=== PATIENT | male | born 1935 | race Caucasian/White ===

== ENCOUNTER 2018-12-24 05:26 | Emergency (ER) | payer MEDICARE, OTHER ==
[~2018-12-24] VITALS: Ht 167.6 cm; Wt 104.5 kg
[2018-12-24 05:30] VITALS: Ht 167.6 cm; Wt 104.5 kg
[2018-12-24] MEDS ORDERED: JANUVIA25 MG (05:31)
[2018-12-24] MEDS ORDERED: GLUCOPHAGE500 MG (05:31)
[2018-12-24] MEDS ORDERED: BAYER CHEWABLE81 MG PO (05:31)
[2018-12-24] MEDS ORDERED: [UNRECOGNIZED DRUG - REMARK] (05:32)
[2018-12-24 06:44] LABS: CALC OSMOLALITY 278 mosm/kg (275-300); CALCIUM 8.9 mg/dL (8.5-10.1); CARBON DIOXIDE 28.6 mmol/L (21.0-32.0); CHLORIDE - SERUM 103 mmol/L (98-107); GLUCOSE 160 mg/dL (74-106); POTASSIUM - SERUM 4.9 mmol/L (3.5-5.1); SODIUM 138 mmol/L (136-145); UREA NITROGEN 12 mg/dL (7-18); eGFR NON AFRICAN AMERICAN 76 mL/min (90-120)
[2018-12-24 06:46] LABS: BASOPHILS 0.3 % (0-2); EOSINOPHILS 2.1 % (0-7); HEMATOCRIT 35.8 % (42.0-54.0); HEMOGLOBIN 10.4 g/dL (13.5-17.5); IMMATURE GRANULOCYTES 0.3 % (0-5); LYMPHOCYTES 11.7 % (15-50); MCH 24.1 pg (26.0-34.0); MCHC 29.1 g/dL (31.0-37.0); MCV 82.9 fL (80.0-100.0); MEAN PLATELET VOLUME 9.6 fL (7.4-10.4); MONOCYTES 7.5 % (2-11); NEUTROPHILS 78.1 % (40-80); PLATELET COUNT 209 10x3/uL (130-400); RBC 4.32 10x6/uL (4.20-6.10); RDW 15.7 % (11.5-14.5); WBC 7.5 10x3/uL (4.8-10.8)
[2018-12-24 06:59] LABS: ALBUMIN 3.4 g/dL (3.4-5.0); ALKALINE PHOSPHATASE 84 U/L (46-116); ALT (SGPT) 24 U/L (10-68); BILIRUBIN - TOTAL 0.45 mg/dL (0.2-1.3); CREATINE KINASE 146 UL (21-232); MAGNESIUM - SERUM 1.4 mg/dL (1.8-2.4); PROTEIN - SERUM 7.4 g/dL (6.4-8.2); TROPONIN-I 0.044 ng/mL (0.000-0.060)
[2018-12-24 07:19] LABS: INR 0.94 (0.85-1.17); PROTIME 12.1 SECONDS (11.6-15.0)
[2018-12-24 07:20] LABS: APTT 29.2 SECONDS (22.8-39.4)
[2018-12-24 07:34] LABS: APPEARANCE CLEAR (CLEAR); BILIRUBIN NEGATIVE (NEGATIVE); COLOR YELLOW (YELLOW); GLUCOSE 250 mg/dL (NEGATIVE); KETONE NEGATIVE (NEGATIVE); NITRITE NEGATIVE (NEGATIVE); PROTEIN NEGATIVE (NEGATIVE); UROBILINOGEN NORMAL (NORMAL)
[2018-12-24 08:14] LABS: THYROID STIMULATING HORMONE 3.24 uIU/mL (0.36-3.74)
[2018-12-24 08:58] VITALS: BP 147/67
== END 2018-12-24 08:59 | disposition home or self-care (01) ==
LOC: D.ER 05:26
PROVIDERS: Emergency Medicine; Family Medicine
DX: R51 Headache (principal); R68.83 Chills (without fever)

== ENCOUNTER 2020-05-18 17:46 | Inpatient (IN) | payer MEDICARE, OTHER ==
[~2020-05-18] VITALS: Ht 167.6 cm; Wt 114.3 kg
[~2020-05-18 17:46] MED LIST: BAYER ASPIRIN325 MG PO; GLUCOPHAGE1000 MG PO; JANUVIA100 MG PO; [UNRECOGNIZED DRUG - REMARK]
--- NOTE | 2020-05-18 20:00 | NUR ---
AWAKE AND ALERT. RESTING IN BED WITH RESPIRATIONS UNLABORED. ADMITTED FOR PHYSICAL THERAPY AND SERVICES OF DR OLSON. FIDE WALKER. NOTED ABDOMINAL DISTENTION, NO ACUTE DISTRESS NOTED. CALL LIGHT IN REACH.
[2020-05-18 20:03] VITALS: BP 122/74
[2020-05-19 00:58] VITALS: BP 122/74; BMI 40.7
[2020-05-19 04:40] LABS: BILIRUBIN NEGATIVE (NEGATIVE); KETONE NEGATIVE (NEGATIVE); NITRITE NEGATIVE (NEGATIVE); UROBILINOGEN NORMAL mg/dL (< 2)
[2020-05-19 04:41] LABS: BACTERIA FEW HPF (NONE SEEN); SQUAMOUS EPITHELIAL 0-5 HPF (0-4)
--- NOTE | 2020-05-19 05:30 | NUR ---
QUIET HOURS. UP ONE TIME TO CHAIR X 1 HOUR PER HIS REQUEST. NOW RESTING IN BED WITH NO DISTRESS NOTED. FIDE WALKER. CALL LIGHT IN REACH.
[2020-05-19 05:32] LABS: BASOPHILS 0.3 % (0-2); EOSINOPHILS 1.7 % (0-7); HEMATOCRIT 31.4 % (42.0-54.0); HEMOGLOBIN 10.2 g/dL (13.5-17.5); IMMATURE GRANULOCYTES 0.2 % (0-5); LYMPHOCYTE ABS# 0.78 10x3/uL (1.32-3.57); LYMPHOCYTES 12.3 % (15-50); MCH 27.1 pg (26.0-34.0); MCHC 32.5 g/dL (31.0-37.0); MCV 83.5 fL (80.0-100.0); MEAN PLATELET VOLUME 10.2 fL (7.4-10.4); MONOCYTES 12.9 % (2-11); NEUTROPHILS 72.6 % (40-80); RBC 3.76 10x6/uL (4.20-6.10); WBC 6.3 10x3/uL (4.8-10.8)
[2020-05-19 05:33] LABS: PLATELET COUNT 150 10x3/uL (130-400)
[2020-05-19 05:42] LABS: ANION GAP 9.1 mmol/L (8-16); CALCIUM 9.2 mg/dL (8.5-10.1); CARBON DIOXIDE 32.4 mmol/L (21.0-32.0); POTASSIUM - SERUM 4.5 mmol/L (3.5-5.1)
--- NOTE | 2020-05-19 08:00 | NUR ---
SHIFT ASSMT COMPLETED.
[2020-05-19 08:18] VITALS: BP 121/55
[2020-05-19 09:36] VITALS: BMI 40.6
[2020-05-19 19:00] VITALS: BP 122/57
--- NOTE | 2020-05-19 19:22 | NUR ---
AWAKE AND ALERT. RESTING IN BED WITH RESPIRATIONS UNLABORED. ELIZALDE PATENT. ABDOMEN DISTENDED AND SCROTUM SWOLLEN. RECENTLY MEDICATED FOR PAIN. SEE MAR. CALL LIGHT IN REACH.
--- NOTE | 2020-05-20 08:00 | NUR ---
SHIFT ASSMT COMPLETED.
[2020-05-20 08:48] VITALS: BP 136/60
--- NOTE | 2020-05-20 16:00 | NUR ---
VISITING WITH SON.
[2020-05-20 19:00] VITALS: BP 143/74
--- NOTE | 2020-05-20 19:29 | NUR ---
AWAKE AND ALERT. USED BATHROOM AND HAD A SMALL BM. ABDOMEN REMAINS DISTENDED BUT SCROTUM AND LEG SWELLING HAS GONE DOWN. ELIZALDE PATENT. O2/2L ON PER NASAL CANNULA. CALL LIGHT IN REACH.
--- NOTE | 2020-05-21 01:33 | NUR ---
RESTING IN BED WITH RESPIRATIONS UNLABORED. NO DISTRESS NOTED.
--- NOTE | 2020-05-21 05:08 | NUR ---
QUIET HOURS. NO ACUTE CHANGES IN CONDITION THIS SHIFT. RESTING IN BED WITH NO DISTRESS NOTED.
[2020-05-21 07:27] LABS: BASOPHILS 0.1 % (0-2); EOSINOPHILS 2.2 % (0-7); HEMATOCRIT 30.8 % (42.0-54.0); HEMOGLOBIN 9.9 g/dL (13.5-17.5); IMMATURE GRANULOCYTES 0.1 % (0-5); LYMPHOCYTE ABS# 0.95 10x3/uL (1.32-3.57); LYMPHOCYTES 14.1 % (15-50); MCH 26.7 pg (26.0-34.0); MCHC 32.1 g/dL (31.0-37.0); MEAN PLATELET VOLUME 10.1 fL (7.4-10.4); MONOCYTES 11.1 % (2-11); NEUTROPHIL ABS# 4.89 10x3/uL (1.78-5.38); NEUTROPHILS 72.4 % (40-80); RBC 3.71 10x6/uL (4.20-6.10); RDW 16.3 % (11.5-14.5); WBC 6.8 10x3/uL (4.8-10.8)
--- NOTE | 2020-05-21 07:34 | NUR ---
ALERT AND ORIENTED. ASSESSMENT COMPLETE. DENIES NEEDS. BED LOW. CALL OVERTON AND PERSONAL ITEMS IN REACH. WILL CONTINUE TO MONITOR.
[2020-05-21 07:35] LABS: PLATELET COUNT 187 10x3/uL (130-400)
[2020-05-21 07:36] LABS: ANION GAP 13.7 mmol/L (8-16); CALCIUM 9.3 mg/dL (8.5-10.1); CARBON DIOXIDE 28.5 mmol/L (21.0-32.0); CREATININE - SERUM 3.5 mg/dL (0.6-1.3); POTASSIUM - SERUM 5.2 mmol/L (3.5-5.1)
[2020-05-21 07:47] VITALS: BP 106/58
--- NOTE | 2020-05-21 17:53 | NUR ---
RESTING IN BED. FAMILY AT BEDSIDE. DENIES NEEDS. WILL CONTINUE TO MONITOR.
--- NOTE | 2020-05-21 19:00 | NUR ---
BEDSIDE REPORT COMPLETE. RECEIVED PT SITTING UP IN W/C VISITING WITH FAMILY. ALERT AND ORIENTED X4. PT REQUESTS HS MEDS BE GIVEN AT 2200. ABDOMINAL DISTENTION NOTED. BLE +2 EDEMA. F/C PATENT FREE FROM KINKS. DENIES ANY PAIN. NO DISTRESS NOTED. CALL LIGHT AND WATER WITHIN REACH. FALL PRECAUTIONS IN PLACE. NO IV OR OXYGEN NOTED. CPOC
[2020-05-21 19:09] VITALS: BP 127/55
--- NOTE | 2020-05-22 00:05 | NUR ---
PT CALLED WANTING TO SIT UP IN W/C. ASSISTED PT WITH TRANSFER MIN ASSIST. PT DENIES ANY OTHER NEEDS. CALL LIGHT WITHIN REACH. FALL PRECAUTIONS IN PLACE.
[2020-05-22] MEDS ORDERED: OMEPRAZOLE20 M1 PO (01:48)
[2020-05-22] MEDS ORDERED: ALDACTONE100 MG PO (01:49)
[2020-05-22] MEDS ORDERED: FLOMAX0.4 MG PO (01:50)
[2020-05-22] MEDS ORDERED: TORSEMIDE20 MG PO (01:59)
[2020-05-22] MEDS ORDERED: ZOCOR40 MG PO (02:01)
[2020-05-22] MEDS ORDERED: NYSTATIN100000 UN4 PO (02:02)
[2020-05-22] MEDS ORDERED: NORVASC5 MG PO (02:03)
[2020-05-22] MEDS ORDERED: VOLTAREN100 GM TOPICAL (02:03)
[2020-05-22] MEDS ORDERED: TRELEGY ELLIPT1 EACH INH (02:04)
[2020-05-22] MEDS ORDERED: SYNTHROID50 MCG PO (02:14)
[2020-05-22] MEDS ORDERED: IBUPROFEN400 MG PO (02:14)
[2020-05-22] MEDS ORDERED: MELATONIN10 M1 PO (02:15)
[2020-05-22] MEDS ORDERED: ALBUTEROL SULF8.5 GM INH (02:16)
--- NOTE | 2020-05-22 02:45 | NUR ---
PT LYING IN BED SUPINE EYES CLOSED RESTING. CONTINUES ON 2L VIA NC. NO DISTRESS NOTED. CALL LIGHT WITHIN REACH.
--- NOTE | 2020-05-22 05:13 | NUR ---
ASSISTED PT FROM BED TO W/C WITH MIN ASSIST. 900ML DARK YELLOW URINE EMPTIED FROM F/C. DENIES ANY NEEDS OR PAIN. NO ACUTE CHANGES IN CONDITION NOTED THIS SHIFT. CALL LIGHT WITHIN REACH. FALL PRECAUTIONS IN PLACE. CPOC
[2020-05-22 06:45] LABS: ANION GAP 17.2 mmol/L (8-16); CALCIUM 9.1 mg/dL (8.5-10.1); CARBON DIOXIDE 25.3 mmol/L (21.0-32.0); CREATININE - SERUM 3.8 mg/dL (0.6-1.3); POTASSIUM - SERUM 5.5 mmol/L (3.5-5.1)
[2020-05-22 06:52] LABS: BASOPHILS 0.3 % (0-2); EOSINOPHILS 1.9 % (0-7); HEMATOCRIT 29.9 % (42.0-54.0); HEMOGLOBIN 9.9 g/dL (13.5-17.5); IMMATURE GRANULOCYTES 0.2 % (0-5); LYMPHOCYTE ABS# 0.44 10x3/uL (1.32-3.57); LYMPHOCYTES 7.5 % (15-50); MCH 27.4 pg (26.0-34.0); MCHC 33.1 g/dL (31.0-37.0); MCV 82.8 fL (80.0-100.0); MEAN PLATELET VOLUME 9.8 fL (7.4-10.4); MONOCYTES 12.6 % (2-11); NEUTROPHIL ABS# 4.57 10x3/uL (1.78-5.38); NEUTROPHILS 77.5 % (40-80); PLATELET COUNT 172 10x3/uL (130-400); RBC 3.61 10x6/uL (4.20-6.10); RDW 16.5 % (11.5-14.5); WBC 5.9 10x3/uL (4.8-10.8)
[2020-05-22 07:55] VITALS: BP 134/59
--- NOTE | 2020-05-22 18:55 | NUR ---
BEDSIDE REPORT COMPLETE. RECEIVED PT LYING IN BED, ALERT AND ORIENTED X4. ELIZALDE CATH PATENT FREE FROM KINKS. CONCENTRATED URINE NOTED IN COLLECTION BAG. +1 EDEMA TO BLE. DENIES ANY NEEDS OR PAIN. NO DISTRESS NOTED. 2L O2 PRN. O2 SAT 95% ON ROOM AIR. CALL LIGHT AND WATER WTIHIN REACH. FALL PRECAUTIONS IN PLACE. CPOC
[2020-05-22 20:00] VITALS: BP 121/56
--- NOTE | 2020-05-22 23:42 | NUR ---
PT LYING IN BED SUPINE EYES CLOSED RESTING. HOB ELEVATED. RR EVEN AND UNLABORED. CONTINUES ON O2/2L VIA NC. CALL LIGHT WITHIN REACH
--- NOTE | 2020-05-23 02:40 | NUR ---
PT CALLED WANTING TO GET UP AND SIT IN W/C. SUPERVISED TRANSFER FROM BED TO W/C. DENIES ANY OTHER NEEDS OR PAIN. NO DISTRESS NOTED. CALL LIGHT WITHIN REACH. FALL PRECAUTIONS IN PLACE. CPOC
--- NOTE | 2020-05-23 05:40 | NUR ---
DR. SPENCE CALLED IN REGARDS TO CONSULT. TELEPHONE ORDERS FOR ALBUMIN 50GM BID AND LASIX 80MG IV BID. DC DEMADEX 80MG BID, LASIX 20MG DAILY, ALDACTONE 100MG BID. ORDERS READ BACK AND VERIFIED BY DR. SPENCE. DR. SPENCE REPORTED PT NEEDS CT GUIDED BIOPSY WITH POSSIBLE PARACENTESIS D/T ABDOMINAL DISTENTION AND REQUESTED A NOTE BE LEFT FOR EARLE BOWENS. REVIEWED LABS WITH DR. SPENCE OVER THE PHONE. WILL ORDER FOLLOWING MEDS PER T.O.
--- NOTE | 2020-05-23 06:40 | NUR ---
NO UPDRAFT GIVEN PT UP WALKING THE HALLS WITH THERAPY
[2020-05-23 06:59] LABS: BASOPHILS 0.1 % (0-2); EOSINOPHILS 2.9 % (0-7); HEMATOCRIT 29.6 % (42.0-54.0); HEMOGLOBIN 9.7 g/dL (13.5-17.5); IMMATURE GRANULOCYTES 0.1 % (0-5); LYMPHOCYTE ABS# 0.88 10x3/uL (1.32-3.57); LYMPHOCYTES 12.6 % (15-50); MCH 26.7 pg (26.0-34.0); MCHC 32.8 g/dL (31.0-37.0); MCV 81.5 fL (80.0-100.0); MEAN PLATELET VOLUME 9.9 fL (7.4-10.4); MONOCYTES 11.9 % (2-11); NEUTROPHIL ABS# 5.05 10x3/uL (1.78-5.38); NEUTROPHILS 72.4 % (40-80); PLATELET COUNT 195 10x3/uL (130-400); RBC 3.63 10x6/uL (4.20-6.10); RDW 16.2 % (11.5-14.5)
[2020-05-23 07:19] LABS: ALBUMIN 3.3 g/dL (3.4-5.0); ANION GAP 18.1 mmol/L (8-16); BILIRUBIN - TOTAL 1.44 mg/dL (0.2-1.3); CALCIUM 9.1 mg/dL (8.5-10.1); CARBON DIOXIDE 26.8 mmol/L (21.0-32.0); CREATININE - SERUM 3.9 mg/dL (0.6-1.3); MAGNESIUM - SERUM 1.7 mg/dL (1.8-2.4); POTASSIUM - SERUM 5.9 mmol/L (3.5-5.1); PROTEIN - SERUM 6.5 g/dL (6.4-8.2)
[2020-05-23 07:41] VITALS: BP 140/65
[2020-05-23 13:06] VITALS: Ht 167.6 cm; Wt 114.3 kg
[2020-05-23] MEDS ORDERED: ULTRAM50 MG PO (14:57)
[2020-05-23 15:12] LABS: CALCIUM 9.5 mg/dL (8.5-10.1); CARBON DIOXIDE 27.8 mmol/L (21.0-32.0); CREATININE - SERUM 3.9 mg/dL (0.6-1.3); POTASSIUM - SERUM 5.8 mmol/L (3.5-5.1)
[2020-05-23] MEDS ORDERED: LASIX INJ40 MG/4 ML IV (15:24)
[2020-05-23] MEDS ORDERED: ALBUMINAR-25100 ML IV (15:26)
[2020-05-23] MEDS ORDERED: PROTONIX40 MG PO (15:29)
--- NOTE | 2020-05-23 15:37 | NUR ---
CARE TEAM MEETING: DUE TO CHANGE IN PATIENT MEDICAL CONDITION, PATIENT DISCHARGE FROM [facility] AND ADMITTED TO ACUTE FLOOR.
[2020-05-23] MEDS ORDERED: ATROVENT 0.02%2.5 ML UPD (15:40)
[2020-05-23] MEDS ORDERED: PERFOROMIS20 MCG/21 INH (15:42)
[2020-05-23] MEDS ORDERED: PULMICORT0.5 MG/21 INH (15:53)
[2020-05-23] MEDS ORDERED: MYLANTA / MAALO30 ML PO (15:55)
--- NOTE | 2020-05-24 00:32 | RHP ---
PATIENT: KOSTAS HERCULES MEDICAL RECORD: [id number] ACCOUNT: [id number] LOCATION:[facility] Aravind1119 : 37 ADMISSION DATE: 05/18/20 REHABILITATION HISTORY AND PHYSICAL EXAMINATION POST ADMISSION PHYSICIAN EXAMINATION ADMITTING DIAGNOSIS: Debility. HISTORY OF PRESENT ILLNESS: The patient admitted due to acute hip rehabilitation secondary to debility to a newly-diagnosed cirrhosis and newly-diagnosed liver cancer. He is an 85-year-old gentleman who lives alone at home, was independent with his care. At times, he did require some assistance from a single point cane. He was diagnosed with COVID back in October last year. Apparently, he has gone to the Emergency Room. He arrived in the Emergency Department with complaints of abdominal distention and shortness of breath. He states that he had decreased urine output, had gained 15 to 30 pounds, had abnormal labs with elevated potassium, BUN and creatinine and LFTs. CT of his abdomen showed nodular hepatic contour suggesting of cirrhotic morphology, an indeterminate lesion was also noted. Follow up with scanning showed a large volume ascites and nonobstructing bilateral nephrolithiasis. The patient has a small left pleural effusions also noted. He was admitted and renal oncology saw him throughout his stay. General medicine also saw him throughout his stay. He is currently getting palliative care because states that he did not feel like that he wanted to pursue treatment. He has had a large volume paracentesis done. We have been watching his blood sugars and blood pressure also. His current problems include proximal muscle weakness, electrolyte abnormalities, eosinophilia, Klinefelter syndrome. He has got diabetes. He has got ascites, acute renal failure. The patient is going to need continued monitoring of his labs, his bowel function, his bladder training, pain control, medication adjustment, dietary teaching. He is needing PT and OT for strengthening, endurance, safe use of assistive devices to hopefully get him back home again. COMORBIDITIES: Include ksyry-ie-zsmhssi renal failure, arrhythmias, ataxia, cancer, chronic kidney disease, difficulty walking, diabetes, edema, electrolyte abnormalities, hypertension, osteoporosis, TIA in the past. PAST MEDICAL HISTORY: Significant for diabetes, hypertension, hyperlipidemia, oxygen dependency, COVID, morbid obesity, obstructive sleep apnea, Harrison's palsy, eosinophilia, hypogonadism, hypothyroidism. PAST SURGICAL HISTORY: Includes cataract surgery, he has had bilateral knee replacements, multiple colonoscopies, polypectomies, removal of benign skin lesions, carpal tunnel. ALLERGIES: SHELLFISH AND SULFA. CURRENT MEDICATIONS: Include furosemide 20 mg daily, aspirin 325 daily, amlodipine 5 mg daily, Protonix 40 mg daily, Januvia 100 mg daily with breakfast, metformin 1000 mg b.i.d., formoterol 20 mcg daily, he is on Atrovent updrafts, budesonide 0.5 mg b.i.d., Synthroid 50 mcg daily, diclofenac topically to use as needed, Demadex 80 mg b.i.d., Flomax 0.4 mg at bedtime, spironolactone 100 mg b.i.d., nystatin suspension 5 mL before every meal and at bedtime, melatonin 10 mg at bedtime, Zocor 20 mg at bedtime, he is on tramadol 50 mg every 6 hours, Advil 400 mg every 6 hours and Ventolin updrafts. HISTORY AND PHYSICAL [id number] KOSTAS HERCULES HABITS: No current alcohol or tobacco use. FAMILY HISTORY: Noncontributory. SOCIAL HISTORY: The patient hopes to return back home and get back to his prior level of functioning. REVIEW OF SYSTEMS: GENERAL: He does complain of weakness and fatigue. HEENT: Denies cold, cough or congestion. CARDIOVASCULAR: Denies any chest pain. PHYSICAL EXAMINATION: VITAL SIGNS: Stable, afebrile. GENERAL: A morbidly obese gentleman in no acute distress upon exam. HEENT: Normocephalic and atraumatic. Mucosa moist. NECK: Supple with no lymphadenopathy. LUNGS: Clear in upper bernstein. Decreased breath sounds in the bases. CARDIOVASCULAR: Regular rate and rhythm. No murmurs, rubs or gallops. ABDOMEN: Soft, protuberant. Does have a positive fluid wave and ascites. EXTREMITIES: Does have peripheral edema. NEUROLOGIC: He has got some diffuse weakness. LABORATORY DATA: White count 6.3, H&H 10 and 31 and platelet count was noted to be 150. His sodium is 134, potassium 4.5, BUN and creatinine of 56 and 3.0 and blood sugar is noted to be 136. Admit UA did show trace leukocyte esterase and 2+ blood. ASSESSMENT: This is an 85-year-old gentleman admitted to the rehab with a working diagnosis of debility secondary to new-onset cirrhosis and renal insufficiency. The patient has potential to make improvement. We instituted the following multidisciplinary therapies include, not limited to physical, occupational, respiratory, speech, nutritional services, prosthetics and orthotics. Given his complex medical condition and risks for more complications, rehabilitation services cannot be provided at a low level of care such as jail facility. PLAN: 1. Admit to [facility] for inpatient therapy to include the following disciplines; A. Physical therapy to improve gait, all transfer skills and bed mobility to a modified independent level. B. Occupational therapy to improve activities of daily living. C. Case management to help with discharge planning and placement options. D. Nutrition to assist with nutritional needs. E. Rehabilitation nursing to assist in monitoring the patient's underlying medical condition and to assist with any type of bowel or bladder management. 2. The patient's current medication and Medicare will be continued. 3. Placed on standard fall precautions. 4. The patient's estimated length of stay is approximately 7-10 days. 5. Discuss this patient during care team staff meeting this week and my nurse practitioner will be seeing him again on Thursday a.m. TRANSINT:[id number] Voice Confirmation ID: [id number] DOCUMENT ID: [id number] HISTORY AND PHYSICAL [id number] KOSTAS HERCULES 05/22/2020 Edited for leticia OSBORN. ANURAG notes whether there has been none or any medical/functional change since admission: - No change since preadmission screen. ANURAG attests patient continues to be appropriate for IRF: - Continues to be appropriate. KOSTAS OLSON MD at 0032 CC: [id number] DICTATION DATE: 05/19/20 1113 CERTIFIED PHARMACIST ASSISTANT: 05/19/20 1226 DIS IN 05/23/20 [facility] [address] [id number]
== END 2020-05-23 17:04 | disposition short-term general hospital (02) | DRG 948 ==
LOC: D.REHAB 17:46
PROVIDERS: Internal Medicine Nephrology; ADMIT Emergency Medicine; ATTEND Emergency Medicine
DX: R53.81 Other malaise (principal); C22.8 Malignant neoplasm of liver, primary, unspecified as to type; N17.9 Acute kidney failure, unspecified; K74.60 Unspecified cirrhosis of liver; Z86.16 Personal history of COVID-19; M62.81 Muscle weakness (generalized); E87.8 Other disorders of electrolyte and fluid balance, not elsewhere classified; E11.9 Type 2 diabetes mellitus without complications; Q98.4 Klinefelter syndrome, unspecified; E78.5 Hyperlipidemia, unspecified; E66.01 Morbid (severe) obesity due to excess calories; G47.33 Obstructive sleep apnea (adult) (pediatric); G51.0 Bell's palsy; E03.9 Hypothyroidism, unspecified; D72.10 Eosinophilia, unspecified; I12.9 Hypertensive chronic kidney disease with stage 1 through stage 4 chronic kidney disease, or unspecified chronic kidney disease; N18.9 Chronic kidney disease, unspecified; R26.2 Difficulty in walking, not elsewhere classified

== ENCOUNTER 2020-05-23 17:05 | Inpatient (IN) | payer MEDICARE, OTHER ==
[~2020-05-23] VITALS: Ht 167.6 cm; Wt 102.5 kg
--- NOTE | 2020-05-23 17:00 | NUR ---
RECEIVED PATIENT FROM REHAB AT THIS TIME. PATIENT AMBULATES WELL FROM CHAIR TO CHAIR. PATIENT PATIENT IS ALERT AND ORIENTED AT THIS TIME. PLAN OF CARE REVIEWED AND ASSESSMENT HAS BEEN COMPLETED. PATIENT HAS 2 PLUS PITTING EDEMA TO HIS BILATERAL LOWER LEGS. HIS LEGS ARE DISCOLORED. HE HAS ELIZALDE CATH THAT WAS PLACED BY THE UROLOGIST SO IT IS NOT TO BE REMOVED. PATIENT HAS MULTIPLE PERSONAL BELONINGS. STATED HIS LAST BM WAS THIS AM, BUT HE ISNT' VERY REGULAR. NURSE DOES NOTE DYPNEA ON EXERTION. VITALS WNL ON ADMISSION. CALLLIGHT IN REACH
[~2020-05-23 17:05] MED LIST changes: +ALBUMINAR-25100 ML IV; +ALBUTEROL SULF8.5 GM INH; +ALDACTONE100 MG PO; +ATROVENT 0.02%2.5 ML UPD; +FLOMAX0.4 MG PO; +IBUPROFEN400 MG PO; +LASIX INJ40 MG/4 ML IV; +MELATONIN10 M1 PO; +MYLANTA / MAALO30 ML PO; +NORVASC5 MG PO; +NYSTATIN100000 UN4 PO; +OMEPRAZOLE20 M1 PO; +PERFOROMIS20 MCG/21 INH; +PROTONIX40 MG PO; +PULMICORT0.5 MG/21 INH; +SYNTHROID50 MCG PO; +TORSEMIDE20 MG PO; +TRELEGY ELLIPT1 EACH INH; +ULTRAM50 MG PO; +VOLTAREN100 GM TOPICAL; +ZOCOR40 MG PO
[2020-05-23 17:38] VITALS: BP 123/59; BMI 36.5
--- NOTE | 2020-05-23 19:30 | NUR ---
PT IN BED, AAO X 3, RESP EVEN AND UNLABORED, NO DISTRESS NOTED, CL IN REACH, SR UP X 2.
[2020-05-23 20:00] VITALS: BP 108/59
[2020-05-23 23:58] VITALS: BP 119/49
[2020-05-24] VITALS (17 sets, daily range): BP systolic 105–131; BP diastolic 49–61; Ht 167.6 cm; Wt 102.5 kg
--- NOTE | 2020-05-24 02:27 | NUR ---
I have reviewed this patient and I concur with the Shift Assessment completed by the Licensed Practical Nurse today this shift.
--- NOTE | 2020-05-24 02:27 | NUR ---
I have reviewed this patient and I concur with the Shift Assessment completed by the Licensed Practical Nurse today this shift.
[2020-05-24 07:12] LABS: BASOPHILS 0.4 % (0-2); EOSINOPHILS 2.5 % (0-7); HEMATOCRIT 27.4 % (42.0-54.0); HEMOGLOBIN 9.1 g/dL (13.5-17.5); IMMATURE GRANULOCYTES 0.4 % (0-5); LYMPHOCYTE ABS# 0.62 10x3/uL (1.32-3.57); LYMPHOCYTES 11.2 % (15-50); MCH 27.1 pg (26.0-34.0); MCHC 33.2 g/dL (31.0-37.0); MCV 81.5 fL (80.0-100.0); MEAN PLATELET VOLUME 9.9 fL (7.4-10.4); MONOCYTES 9.5 % (2-11); NEUTROPHIL ABS# 4.23 10x3/uL (1.78-5.38); PLATELET COUNT 189 10x3/uL (130-400); RBC 3.36 10x6/uL (4.20-6.10); RDW 16.4 % (11.5-14.5); WBC 5.6 10x3/uL (4.8-10.8)
--- NOTE | 2020-05-24 07:20 | NUR ---
Sitting up in bed, awake/alert/oriented, t/r self ad hali, fc patent and draining clear yellow urine to cdb in ample amt, cath care provided with daily bath and prn, cont of bowel with use of bsc per self ad hali, denies pain/other discomfort at this time, discussed procedure before/after, states understanding, call light/phone within reach, npo for paracentesis, no s/s of acute distress observed.
[2020-05-24 07:31] LABS: ALBUMIN 3.8 g/dL (3.4-5.0); ANION GAP 15.3 mmol/L (8-16); BILIRUBIN - TOTAL 1.48 mg/dL (0.2-1.3); CALCIUM 9.3 mg/dL (8.5-10.1); CARBON DIOXIDE 25.7 mmol/L (21.0-32.0); PROTEIN - SERUM 6.9 g/dL (6.4-8.2); URIC ACID 14.2 mg/dL (2.6-7.2)
[2020-05-24 08:31] LABS: APTT 31.9 SECONDS (22.8-39.4); INR 1.21 (0.85-1.17); PROTIME 14.2 SECONDS (11.6-15.0)
--- NOTE | 2020-05-24 08:33 | NUR ---
Off unit to IR via stretcher in stable condition accompanied by hospital staff, no s/s of acute distress observed.
--- NOTE | 2020-05-24 09:25 | NUR ---
Returned to room, dressing on RLQ clean/dry/intact, took off only 3000mL, call light/phone/water within reach, ordered breakfast, no s/s of acute distress observed.
--- NOTE | 2020-05-24 19:30 | NUR ---
PT IN BED, AAO X 3, RESP EVEN AND UNLABORED, NO DISTRESS NOTED, CL IN REACH, SR UP X 2.
--- NOTE | 2020-05-25 02:28 | NUR ---
I have reviewed this patient and I concur with the Shift Assessment completed by the Licensed Practical Nurse today this shift.
[2020-05-25 04:14] VITALS: BP 111/66
[2020-05-25 05:54] LABS: BASOPHILS 0.4 % (0-2); EOSINOPHILS 3.1 % (0-7); HEMATOCRIT 27.3 % (42.0-54.0); IMMATURE GRANULOCYTES 0.2 % (0-5); LYMPHOCYTE ABS# 0.86 10x3/uL (1.32-3.57); LYMPHOCYTES 16.9 % (15-50); MCH 26.9 pg (26.0-34.0); MCV 81.7 fL (80.0-100.0); MEAN PLATELET VOLUME 10.1 fL (7.4-10.4); MONOCYTES 11.6 % (2-11); NEUTROPHIL ABS# 3.45 10x3/uL (1.78-5.38); NEUTROPHILS 67.8 % (40-80); PLATELET COUNT 197 10x3/uL (130-400); RBC 3.34 10x6/uL (4.20-6.10); RDW 16.3 % (11.5-14.5); WBC 5.1 10x3/uL (4.8-10.8)
[2020-05-25 06:10] LABS: ALBUMIN 4.3 g/dL (3.4-5.0); ANION GAP 14.6 mmol/L (8-16); BILIRUBIN - TOTAL 1.61 mg/dL (0.2-1.3); CALCIUM 9.2 mg/dL (8.5-10.1); CARBON DIOXIDE 26.2 mmol/L (21.0-32.0); MAGNESIUM - SERUM 1.9 mg/dL (1.8-2.4); POTASSIUM - SERUM 4.8 mmol/L (3.5-5.1); PROTEIN - SERUM 7.1 g/dL (6.4-8.2)
--- NOTE | 2020-05-25 07:10 | NUR ---
LYING IN BED, AWAKE/ALERT/ORIENTED, T/R SELF AD ROBI, FC PATENT AND DRAINING CLEAR YELLOW URINE TO CDB IN AMPLE AMT, CATH CARE PROVIDED WITH DAILY BATH AND PRN, CONT OF BOWEL WITH ASSIST TO BSC/BEDPAN PRN, DENIES PAIN/OTHER DISCOMFORT AT THIS TIME, CALL LIGHT/PHONE/WATER WITHIN REACH, NO S/S OF ACUTE DISTRESS OBSERVED.
[2020-05-25 08:39] VITALS: BP 129/66
[2020-05-25 13:12] LABS: SPE - A/G RATIO 1.4 (0.7-1.7); SPE - ALBUMIN 3.8 g/dL (2.9-4.4); SPE - ALPHA-1 GLOBULIN 0.3 g/dL (0.0-0.4); SPE - ALPHA-2 GLOBULIN 0.7 g/dL (0.4-1.0); SPE - BETA GLOBULIN 0.7 g/dL (0.7-1.3); SPE - GAMMA GLOBULIN 1.2 g/dL (0.4-1.8); SPE - M-SPIKE 0.2 g/dL (Not Observed); SPE - TOTAL PROTEIN 6.6 g/dL (6.0-8.5)
[2020-05-25 20:29] VITALS: BP 106/56
--- NOTE | 2020-05-25 23:42 | NUR ---
REPORT RECEIVED, WILL CONT POC. PT UP IN BED, WATCHING TV. NO S/S OF DISTRESS OBSERVED. RR EVEN AND UNLABORED ON RA. BED LOCKED AND LOWERED, CL IN REACH. ASSESSMENT COMPLETED AT THIS TIME. WILL CONT TO MONITOR.
[2020-05-26 00:46] VITALS: BP 114/57
[2020-05-26 05:35] LABS: BASOPHILS 0.6 % (0-2); EOSINOPHILS 3.4 % (0-7); HEMATOCRIT 28.7 % (42.0-54.0); HEMOGLOBIN 9.4 g/dL (13.5-17.5); IMMATURE GRANULOCYTES 0.2 % (0-5); LYMPHOCYTES 13.2 % (15-50); MCH 26.9 pg (26.0-34.0); MCHC 32.8 g/dL (31.0-37.0); MCV 82.2 fL (80.0-100.0); MEAN PLATELET VOLUME 10.1 fL (7.4-10.4); MONOCYTES 12.2 % (2-11); NEUTROPHIL ABS# 3.74 10x3/uL (1.78-5.38); NEUTROPHILS 70.4 % (40-80); PLATELET COUNT 196 10x3/uL (130-400); RBC 3.49 10x6/uL (4.20-6.10); RDW 16.4 % (11.5-14.5); WBC 5.3 10x3/uL (4.8-10.8)
[2020-05-26 05:53] VITALS: BP 100/58
[2020-05-26 06:08] LABS: ALBUMIN 4.4 g/dL (3.4-5.0); ANION GAP 15.3 mmol/L (8-16); BILIRUBIN - TOTAL 1.56 mg/dL (0.2-1.3); CALCIUM 9.2 mg/dL (8.5-10.1); CARBON DIOXIDE 26.2 mmol/L (21.0-32.0); MAGNESIUM - SERUM 1.8 mg/dL (1.8-2.4); POTASSIUM - SERUM 4.5 mmol/L (3.5-5.1); PROTEIN - SERUM 7.2 g/dL (6.4-8.2)
--- NOTE | 2020-05-26 07:00 | NUR ---
LYING IN BED, AWAKE/ALERT/ORIENTED, T/R SELF AD ROBI, FC PATENT AND DRAINING CLEAR YELLOW URINE TO CDB IN AMPLE AMT, CATH CARE PROVIDED WITH DAILY BATH AND PRN, CONT OF BOWEL WITH ASSIST TO BEDPAN/BSC AD ROBI, DENIES PAIN/OTHER DISCOMFORT AT THIS TIME, CALL LIGHT/PHONE/WATER WITHIN REACH, NO S/S OF ACUTE DISTRESS OBSERVED.
--- NOTE | 2020-05-26 07:32 | NUR ---
PTS IV TO L AC LEAKY BUT PATENT. STARTED NEW IV TO L HAND 22 G.
[2020-05-26 08:20] VITALS: BP 136/52
[2020-05-26] MEDS ORDERED: XIFAXAN550 MG PO ×2 (12:19→12:39)
[2020-05-26] MEDS ORDERED: VELTASSA8.4 GM PO (12:25)
[2020-05-26 12:32] VITALS: BP 106/60
--- NOTE | 2020-05-26 16:49 | MORECARE ---
CASE MANAGEMENT DISCHARGE SUMMARY PATIENT: KOSTAS HERCULES UNIT: [id number] ADM DATE: 05/23/20 AGE: 85 : 36 SEX: M ROOM/BED: D.2136 AUTHOR: MOISES,DOC PHYSICIAN: REFERRING PHYSICIAN: GILBERT KUMAR MD DATE OF SERVICE: 05/26/20 Case Management Discharge Planning Summary CT Patient Name: KOSTAS HERCULES Attending MD : TERESA KUMAR, Medical Record: [id number] Encounter : [id number] Facility : [address] [place] [address] Admission Date : 117:05 Center Discharge Date : [address] [place] [address] Date of : DC Plan ID : [id number] Age/Sex/Martia : 85/ M/M Printed on : 05/26/20 16:48 CT DCP Review Details Anticipated D/C: 05/26/2020 Expected LOS : 3 Case Status : INITIATED - Initial Reviewe: [id number] - Mic Cole Initial Review: 05/23/2020 Planned Disposi: 62 - Discharged/Trans to Rehab Facility Including Distinct Units of a Hospital Final Discharge: - Final Reviewer : : Final Review : DCP Focus Questions & Answers DCP Evaluation Patient gives permission to discuss discharge SRINIVAS HERNANDEZ, plans with: (name, relationship and number) Patient's ability to cope with chronic illness d. No chronic illness Patient's current cognitive status: *Oriented to person, place, situation, time and present Patient and/or caregiver agree upon recommended Yes discharge plan? Physical Status: Independent with ADL's Functional screen assessment: Basic needs can adequately be met by self Functional screen assessment: No issues identified Does the patient have the ability to pay for or Yes attain post discharge needs / services? Living Arrangements: Home with others Is there a likelihood that the patient will No require additional services to return to the preadmission environment? Equipment needed for post hospitalization: None Baseline cognitive status: *Oriented to person, place, situation, time and present Living arrangements comments: lives with Son, Rohit Hercules Patient with capacity for self-care or can be Yes cared for in same environment as prior to hospitalization? Physical environment modification needed / No anticipated for discharge: Medication Management: Patient states can afford medications Medication Management: Patient states can read and understand medication labels Pharmacy name(s): [facility] Does Patient have transportation to get home and Yes to follow-up medical appointments when discharged from the hospital? Would patient like to participate in any Care Not applicable Coordination programs (if applicable): Does the patient have electricity at home? Yes Does the patient have running water in their Yes house? Equipment in use: Cane - Single Leg Equipment in use: Walker - Rolling Mental health screen: No mental health history DCP Re-evaluation Would patient like to participate in any Care Not applicable Coordination programs (if applicable): [facility] KOSTAS HERCULES MR#: [id number] /Age/Sex/Ptimar12-Bec-51 /85/M /M Attending Physician Name: JOSÉ [id number] Patient Account:[id number] [facility] Page -1 of 1 All edits/amendments must be made on the electronic document DICTATION DATE: 05/26/201647 MODELER: MICHELLE 05/26/201647 RPT#: [id number] DC DATE: STATUS: ADM IN [facility] [address] [place] [address] END OF REPORT
--- NOTE | 2020-05-26 17:06 | MORECARE ---
CASE MANAGEMENT DISCHARGE SUMMARY PATIENT: KOSTAS HERCULES UNIT: [id number] ADM DATE: 05/23/20 AGE: 85 : 36 SEX: M ROOM/BED: D.2136 AUTHOR: MOISES,DOC PHYSICIAN: REFERRING PHYSICIAN: GILBERT KUMAR MD DATE OF SERVICE: 05/26/20 Case Management Discharge Planning Summary CT Patient Name: KOSTAS HERCULES Attending MD : TERESA KUMAR, Medical Record: [id number] Encounter : [id number] Facility : [address] [place] [address] Admission Date : 117:05 Center Discharge Date : [address] [place] [address] Date of : DC Plan ID : [id number] Age/Sex/Martia : 85/ M/M Printed on : 05/26/20 17:05 CT DCP Review Details Anticipated D/C: 05/26/2020 Expected LOS : 3 Case Status : INITIATED - Initial Reviewe: [id number] - Mic Cole Initial Review: 05/23/2020 Planned Disposi: 62 - Discharged/Trans to Rehab Facility Including Distinct Units of a Hospital Final Discharge: - Final Reviewer : : Final Review : Comments CT Entered Date Type Reviewer 05/26/20 16:59 CT Discharge Planning Mic Cole [place] [address] May 2020 plan and to evaluate needs. Patient lives independently at home with his son, Rohit Hercules ([phone]). Patient stated that he is able to obtain his medications without problems. Patient stated that his primary physician is Dr. Basilio Cole. Nephrology physician at bedside. Patient is ok to return to [facility] inpatient rehab if Octreotide can be continued. Patient is in agreement with plan to return to [facility] inpatient rehab. Rehab notified and medication information given to [facility]. Patient discussed Home Health as an alternative to [facility] but changed his mind. SAMANTA for [facility] inpatient rehab signed and placed on chart. Patient voiced no other needs at this time and is satisfied with DC plan. DC IMM delivered, explained, signed by the patient, and placed in chart. Signed form also left with the patient. CM will continue to follow and will assist as needed with dc plans/needs. DCP Focus Questions & Answers DCP Evaluation Patient gives permission to discuss discharge SRINIVAS HERNANDEZ, plans with: (name, relationship and number) Patient's ability to cope with chronic illness d. No chronic illness Patient's current cognitive status: *Oriented to person, place, situation, time and present Patient and/or caregiver agree upon recommended Yes discharge plan? Physical Status: Independent with ADL's Functional screen assessment: Basic needs can adequately be met by self Functional screen assessment: No issues identified Does the patient have the ability to pay for or Yes attain post discharge needs / services? Living Arrangements: Home with others Is there a likelihood that the patient will No require additional services to return to the preadmission environment? Equipment needed for post hospitalization: None Baseline cognitive status: *Oriented to person, place, situation, time and present Living arrangements comments: lives with Son, Rohit Hercules Patient with capacity for self-care or can be Yes cared for in same environment as prior to hospitalization? Physical environment modification needed / No anticipated for discharge: Medication Management: Patient states can afford medications Medication Management: Patient states can read and understand medication labels Pharmacy name(s): [facility] Does Patient have transportation to get home and Yes to follow-up medical appointments when discharged from the hospital? Would patient like to participate in any Care Not applicable Coordination programs (if applicable): Does the patient have electricity at home? Yes Does the patient have running water in their Yes house? Equipment in use: Cane - Single Leg Equipment in use: Walker - Rolling Mental health screen: No mental health history DCP Re-evaluation Would patient like to participate in any Care Not applicable Coordination programs (if applicable): [facility] KOSTAS HERCULES MR#: [id number] /Age/Sex/Cvkwpk23-Fah-93 /85/M /M Attending Physician Name: JOSÉ [id number] Patient Account:[id number] [facility] Page -1 of 1 All edits/amendments must be made on the electronic document DICTATION DATE: 05/26/201704 [employer]ISE APPLICATIONS MANAGER: MICHELLE 05/26/201704 RPT#: [id number] DC DATE: STATUS: ADM IN [facility] [address] [place] [address] END OF REPORT
--- NOTE | 2020-05-26 19:30 | NUR ---
AAOX4. NO S/S OF DISTRESS. ASSESSMENT COMPLETE. WILL CONT PLAN OF CARE. CLIR, BED IN LOWEST POSITION.
[2020-05-26 20:30] VITALS: BP 130/61
--- NOTE | 2020-05-26 21:30 | NUR ---
MEDS PASSED. PATIENT PLEASANT. SN PROVIDED FRESH WATER. DENIES ANY OTHER NEEDS OR CONCERNS. CLIR. BED IN LOWEST POSITION. WILL CONT TO MONITOER.
[2020-05-27 00:30] VITALS: BP 115/58
--- NOTE | 2020-05-27 01:00 | NUR ---
SLEEPING SUPINE, RR EVEN AND NONLABORED. CLKIR,. BED IN LOWEST POSITION. WILL CONT TO MONITOR.
[2020-05-27 04:30] VITALS: BP 103/56
--- NOTE | 2020-05-27 07:10 | NUR ---
LYING IN BED, AWAKE/ALERT/ORIENTED, T/R SELF AD ROBI, CATH CARE PROVIDED WITH DAIY BATH AND PRN, PERICARE PROVIDED NEEDED WELL, DENIES PAIN/OTHER DISCOMFORT AT THIS TIME, CALL LIGHT/PHONE/WATER WITHIN REACH, NO S/S OF ACUTE DISTRESS OBSERVED.
[2020-05-27 07:27] LABS: BASOPHILS 0.7 % (0-2); EOSINOPHILS 3.4 % (0-7); HEMATOCRIT 30.8 % (42.0-54.0); IMMATURE GRANULOCYTES 0.4 % (0-5); LYMPHOCYTE ABS# 1.03 10x3/uL (1.32-3.57); LYMPHOCYTES 18.4 % (15-50); MCH 26.8 pg (26.0-34.0); MCHC 32.5 g/dL (31.0-37.0); MCV 82.6 fL (80.0-100.0); MEAN PLATELET VOLUME 10.2 fL (7.4-10.4); MONOCYTES 10.7 % (2-11); NEUTROPHIL ABS# 3.71 10x3/uL (1.78-5.38); NEUTROPHILS 66.4 % (40-80); PLATELET COUNT 204 10x3/uL (130-400); RBC 3.73 10x6/uL (4.20-6.10); RDW 16.2 % (11.5-14.5); WBC 5.6 10x3/uL (4.8-10.8)
[2020-05-27 07:41] LABS: ALBUMIN 4.1 g/dL (3.4-5.0); ANION GAP 19.1 mmol/L (8-16); BILIRUBIN - TOTAL 1.52 mg/dL (0.2-1.3); CALCIUM 9.2 mg/dL (8.5-10.1); CARBON DIOXIDE 23.5 mmol/L (21.0-32.0); CREATININE - SERUM 3.8 mg/dL (0.6-1.3); MAGNESIUM - SERUM 1.8 mg/dL (1.8-2.4); POTASSIUM - SERUM 4.6 mmol/L (3.5-5.1); PROTEIN - SERUM 6.8 g/dL (6.4-8.2)
[2020-05-27 08:26] VITALS: BP 136/56
[2020-05-27 13:21] VITALS: BP 103/62
[2020-05-27 16:16] VITALS: BP 135/68
--- NOTE | 2020-05-27 18:26 | NUR ---
PROVIDED WRITTEN/VERBAL DISCHARGE INSTRUCTIONS/EDUCATION TO WHICH PT VERBALIZED UNDERSTANDING, DISCONTINUED IV ACCESS/CARDIAC TELEMETRY MONITORING, PERSONAL POSSESSIONS PACKED AND READY TO GO, PT AWAITING TRANSPORT TO INPATIENT REHAB.
--- NOTE | 2020-05-27 19:13 | MORECARE ---
CASE MANAGEMENT DISCHARGE SUMMARY PATIENT: KOSTAS HERCULES UNIT: [id number] ADM DATE: 05/23/20 AGE: 85 : 36 SEX: M ROOM/BED: D.2136 AUTHOR: MOISES,DOC PHYSICIAN: REFERRING PHYSICIAN: GILBERT KUMAR MD DATE OF SERVICE: 05/27/20 Case Management Discharge Planning Summary CT Patient Name: KOSTAS HERCULES Attending MD : TERESA KUMAR, Medical Record: [id number] Encounter : [id number] Facility : [address] [place] [address] Admission Date : 117:05 Center Discharge Date : 05/27/[address] [place] [address] Date of : DC Plan ID : [id number] Age/Sex/Martia : 85/ M/M Printed on : 05/27/20 19:12 CT DCP Review Details Anticipated D/C: 05/26/2020 Expected LOS : 3 Case Status : INITIATED - Initial Reviewe: [id number] - Mic Cole Initial Review: 05/23/2020 Planned Disposi: 62 - Discharged/Trans to Rehab Facility Including Distinct Units of a Hospital Final Discharge: - Final Reviewer : : Final Review : Comments CT Entered Date Type Reviewer 05/26/20 16:59 CT Discharge Planning Mic [place] [address] May 2020 plan and to evaluate needs. Patient lives independently at home with his son, Rohit Hercules ([phone]). Patient stated that he is able to obtain his medications without problems. Patient stated that his primary physician is Dr. Basilio Cole. Nephrology physician at bedside. Patient is ok to return to [facility] inpatient rehab if Octreotide can be continued. Patient is in agreement with plan to return to [facility] inpatient rehab. Rehab notified and medication information given to Nehal. Patient discussed Home Health as an alternative to [facility] but changed his mind. SAMANTA for [facility] inpatient rehab signed and placed on chart. Patient voiced no other needs at this time and is satisfied with DC plan. DC IMM delivered, explained, signed by the patient, and placed in chart. Signed form also left with the patient. CM will continue to follow and will assist as needed with dc plans/needs. DCP Focus Questions & Answers DCP Evaluation Patient and/or caregiver agree upon recommended Yes discharge plan? Patient's current cognitive status: *Oriented to person, place, situation, time and present Patient's ability to cope with chronic illness d. No chronic illness Patient gives permission to discuss discharge SRINIVAS HERNANDEZ, plans with: (name, relationship and number) Does the patient have the ability to pay for or Yes attain post discharge needs / services? Functional screen assessment: No issues identified Functional screen assessment: Basic needs can adequately be met by self Physical Status: Independent with ADL's Equipment needed for post hospitalization: None Is there a likelihood that the patient will No require additional services to return to the preadmission environment? Living Arrangements: Home with others Patient with capacity for self-care or can be Yes cared for in same environment as prior to hospitalization? Living arrangements comments: lives with Son, Rohit Hercules Baseline cognitive status: *Oriented to person, place, situation, time and present Physical environment modification needed / No anticipated for discharge: Medication Management: Patient states can read and understand medication labels Medication Management: Patient states can afford medications Pharmacy name(s): [facility] Does Patient have transportation to get home and Yes to follow-up medical appointments when discharged from the hospital? Would patient like to participate in any Care Not applicable Coordination programs (if applicable): Does the patient have electricity at home? Yes Does the patient have running water in their Yes house? Equipment in use: Walker - Rolling Equipment in use: Cane - Single Leg Mental health screen: No mental health history DCP Re-evaluation Would patient like to participate in any Care Not applicable Coordination programs (if applicable): [facility] KOSTAS HERCULES MR#: [id number] /Age/Sex/Irrmwh61-Nic-60 /85/M /M Attending Physician Name: JOSÉ [id number] Patient Account:[id number] [facility] Page -1 of 1 All edits/amendments must be made on the electronic document DICTATION DATE: 05/27/201911 PROFESSOR OF FINE ART: MICHELLE 05/27/201911 RPT#: [id number] DC DATE:05/27/20 STATUS: DIS IN [facility] [address] [place] [address] END OF REPORT
--- NOTE | 2020-05-28 16:46 | MORECARE ---
CASE MANAGEMENT DISCHARGE SUMMARY PATIENT: KOSTAS HERCULES UNIT: [id number] ADM DATE: 05/23/20 AGE: 85 : 36 SEX: M ROOM/BED: D.2136 AUTHOR: MOISES,DOC PHYSICIAN: REFERRING PHYSICIAN: GILBERT KUMAR MD DATE OF SERVICE: 05/28/20 Case Management Discharge Planning Summary CT Patient Name: KOSTAS HERCULES Attending MD : TERESA KUMAR, Medical Record: [id number] Encounter : [id number] Facility : [address] [place] [address] Admission Date : 117:05 Center Discharge Date : 05/27/[address] [place] [address] Date of : DC Plan ID : [id number] Age/Sex/Martia : 85/ M/M Printed on : 05/28/20 16:45 CT DCP Review Details Anticipated D/C: 05/26/2020 Expected LOS : 3 Case Status : INITIATED - Initial Reviewe: [id number] - Mic Cole Initial Review: 05/23/2020 Planned Disposi: 62 - Discharged/Trans to Rehab Facility Including Distinct Units of a Hospital Final Discharge: - Final Reviewer : : Final Review : Comments CT Entered Date Type Reviewer 05/26/20 16:59 CT Discharge Planning Mic Cole [place] [address] May 2020 plan and to evaluate needs. Patient lives independently at home with his son, Rohit Hercules ([phone]). Patient stated that he is able to obtain his medications without problems. Patient stated that his primary physician is Dr. Basilio Cole. Nephrology physician at bedside. Patient is ok to return to [facility] inpatient rehab if Octreotide can be continued. Patient is in agreement with plan to return to [facility] inpatient rehab. Rehab notified and medication information given to Nehal. Patient discussed Home Health as an alternative to [facility] but changed his mind. SAMANTA for [facility] inpatient rehab signed and placed on chart. Patient voiced no other needs at this time and is satisfied with DC plan. DC IMM delivered, explained, signed by the patient, and placed in chart. Signed form also left with the patient. CM will continue to follow and will assist as needed with dc plans/needs. DCP Focus Questions & Answers DCP Evaluation Patient and/or caregiver agree upon recommended Yes discharge plan? Patient's current cognitive status: *Oriented to person, place, situation, time and present Patient's ability to cope with chronic illness d. No chronic illness Patient gives permission to discuss discharge SRINIVAS HERNANDEZ, plans with: (name, relationship and number) Does the patient have the ability to pay for or Yes attain post discharge needs / services? Functional screen assessment: No issues identified Functional screen assessment: Basic needs can adequately be met by self Physical Status: Independent with ADL's Equipment needed for post hospitalization: None Is there a likelihood that the patient will No require additional services to return to the preadmission environment? Living Arrangements: Home with others Patient with capacity for self-care or can be Yes cared for in same environment as prior to hospitalization? Living arrangements comments: lives with Son, Rohit Hercules Baseline cognitive status: *Oriented to person, place, situation, time and present Physical environment modification needed / No anticipated for discharge: Medication Management: Patient states can read and understand medication labels Medication Management: Patient states can afford medications Pharmacy name(s): [facility] Does Patient have transportation to get home and Yes to follow-up medical appointments when discharged from the hospital? Would patient like to participate in any Care Not applicable Coordination programs (if applicable): Does the patient have electricity at home? Yes Does the patient have running water in their Yes house? Equipment in use: Walker - Rolling Equipment in use: Cane - Single Leg Mental health screen: No mental health history DCP Re-evaluation Would patient like to participate in any Care Not applicable Coordination programs (if applicable): [facility] KOSTAS HERCULES MR#: [id number] /Age/Sex/Ewwfwq46-Ygt-22 /85/M /M Attending Physician Name: JOSÉ [id number] Patient Account:[id number] [facility] Page -1 of 1 All edits/amendments must be made on the electronic document DICTATION DATE: 05/28/201644 CORE INSPECTOR: MICHELLE 05/28/201644 RPT#: [id number] DC DATE:05/27/20 STATUS: DIS IN [place] [address] [place] [address] END OF REPORT
== END 2020-05-27 19:00 | DRG 441 ==
LOC: D.M2 17:05
PROVIDERS: Internal Medicine Nephrology; Specialist; ADMIT Family Medicine; ATTEND Family Medicine
PROC: 0W9G3ZZ Drainage of Peritoneal Cavity, Percutaneous Approach (ICD-10-PCS; principal; 2020-05-24 08:59)
DX: K76.7 Hepatorenal syndrome (principal); K72.00 Acute and subacute hepatic failure without coma; N17.9 Acute kidney failure, unspecified; C22.0 Liver cell carcinoma; N39.0 Urinary tract infection, site not specified; E87.1 Hypo-osmolality and hyponatremia; E87.5 Hyperkalemia; E78.5 Hyperlipidemia, unspecified; Z99.81 Dependence on supplemental oxygen; E66.01 Morbid (severe) obesity due to excess calories; G51.0 Bell's palsy; D72.10 Eosinophilia, unspecified; Z66 Do not resuscitate; M81.0 Age-related osteoporosis without current pathological fracture; I12.9 Hypertensive chronic kidney disease with stage 1 through stage 4 chronic kidney disease, or unspecified chronic kidney disease; N18.9 Chronic kidney disease, unspecified; Z68.36 Body mass index [BMI] 36.0-36.9, adult; E11.22 Type 2 diabetes mellitus with diabetic chronic kidney disease; D63.1 Anemia in chronic kidney disease

== ENCOUNTER 2020-05-27 18:45 | Inpatient (IN) | payer MEDICARE, OTHER ==
[~2020-05-27 18:45] MED LIST changes: +VELTASSA8.4 GM PO; +XIFAXAN550 MG PO
[2020-05-28 07:14] LABS: BASOPHILS 0.3 % (0-2); EOSINOPHILS 3.1 % (0-7); HEMATOCRIT 32.8 % (42.0-54.0); HEMOGLOBIN 10.4 g/dL (13.5-17.5); IMMATURE GRANULOCYTES 0.3 % (0-5); LYMPHOCYTE ABS# 1.07 10x3/uL (1.32-3.57); LYMPHOCYTES 17.6 % (15-50); MCH 26.4 pg (26.0-34.0); MCHC 31.7 g/dL (31.0-37.0); MCV 83.2 fL (80.0-100.0); MONOCYTES 11.7 % (2-11); NEUTROPHIL ABS# 4.07 10x3/uL (1.78-5.38); PLATELET COUNT 205 10x3/uL (130-400); RBC 3.94 10x6/uL (4.20-6.10); RDW 16.2 % (11.5-14.5); WBC 6.1 10x3/uL (4.8-10.8)
[2020-05-28 07:21] LABS: ANION GAP 17.7 mmol/L (8-16); CALCIUM 9.4 mg/dL (8.5-10.1); CARBON DIOXIDE 24.4 mmol/L (21.0-32.0); CREATININE - SERUM 3.6 mg/dL (0.6-1.3); POTASSIUM - SERUM 4.1 mmol/L (3.5-5.1)
[2020-05-28 12:33] LABS: BACTERIA FEW HPF (NONE SEEN); BILIRUBIN NEGATIVE (NEGATIVE); KETONE NEGATIVE (NEGATIVE); NITRITE NEGATIVE (NEGATIVE); SQUAMOUS EPITHELIAL RARE HPF (0-4); UROBILINOGEN NORMAL mg/dL (< 2); WHITE CELLS - URINE 0-5 HPF (0-1)
[2020-05-30 05:36] LABS: BASOPHILS 0.7 % (0-2); EOSINOPHILS 3.8 % (0-7); HEMATOCRIT 29.3 % (42.0-54.0); HEMOGLOBIN 9.6 g/dL (13.5-17.5); IMMATURE GRANULOCYTES 0.2 % (0-5); LYMPHOCYTE ABS# 1.06 10x3/uL (1.32-3.57); LYMPHOCYTES 25.1 % (15-50); MCH 26.9 pg (26.0-34.0); MCHC 32.8 g/dL (31.0-37.0); MCV 82.1 fL (80.0-100.0); MEAN PLATELET VOLUME 9.4 fL (7.4-10.4); NEUTROPHIL ABS# 2.37 10x3/uL (1.78-5.38); NEUTROPHILS 56.2 % (40-80); RBC 3.57 10x6/uL (4.20-6.10)
[2020-05-30 05:38] LABS: PLATELET COUNT 157 10x3/uL (130-400); WBC 4.2 10x3/uL (4.8-10.8)
[2020-05-30 06:02] LABS: ANION GAP 18.2 mmol/L (8-16); CALCIUM 9.4 mg/dL (8.5-10.1); CARBON DIOXIDE 22.1 mmol/L (21.0-32.0); CREATININE - SERUM 3.4 mg/dL (0.6-1.3); POTASSIUM - SERUM 4.3 mmol/L (3.5-5.1)
[2020-06-01 06:34] LABS: BASOPHILS 0.5 % (0-2); EOSINOPHILS 2.3 % (0-7); HEMATOCRIT 27.2 % (42.0-54.0); HEMOGLOBIN 8.7 g/dL (13.5-17.5); IMMATURE GRANULOCYTES 0.3 % (0-5); LYMPHOCYTE ABS# 0.96 10x3/uL (1.32-3.57); LYMPHOCYTES 24.9 % (15-50); MCH 26.4 pg (26.0-34.0); MCV 82.7 fL (80.0-100.0); MEAN PLATELET VOLUME 9.6 fL (7.4-10.4); MONOCYTES 12.7 % (2-11); NEUTROPHIL ABS# 2.29 10x3/uL (1.78-5.38); NEUTROPHILS 59.3 % (40-80); PLATELET COUNT 135 10x3/uL (130-400); RBC 3.29 10x6/uL (4.20-6.10); RDW 15.8 % (11.5-14.5); WBC 3.9 10x3/uL (4.8-10.8)
[2020-06-01 06:45] LABS: CALCIUM 9.6 mg/dL (8.5-10.1); CARBON DIOXIDE 22.9 mmol/L (21.0-32.0); CREATININE - SERUM 3.6 mg/dL (0.6-1.3)
[2020-06-01 06:59] LABS: ANION GAP 19.6 mmol/L (8-16); POTASSIUM - SERUM 4.5 mmol/L (3.5-5.1)
[2020-06-04 06:55] LABS: BASOPHILS 0.4 % (0-2); EOSINOPHILS 1.7 % (0-7); HEMATOCRIT 28.3 % (42.0-54.0); HEMOGLOBIN 9.2 g/dL (13.5-17.5); IMMATURE GRANULOCYTES 0.2 % (0-5); LYMPHOCYTE ABS# 0.79 10x3/uL (1.32-3.57); LYMPHOCYTES 16.4 % (15-50); MCH 26.6 pg (26.0-34.0); MCHC 32.5 g/dL (31.0-37.0); MCV 81.8 fL (80.0-100.0); MEAN PLATELET VOLUME 10.4 fL (7.4-10.4); NEUTROPHILS 70.3 % (40-80); PLATELET COUNT 136 10x3/uL (130-400); RBC 3.46 10x6/uL (4.20-6.10); WBC 4.8 10x3/uL (4.8-10.8)
[2020-06-04 07:13] LABS: ANION GAP 20.9 mmol/L (8-16); CALCIUM 10.1 mg/dL (8.5-10.1); CARBON DIOXIDE 21.9 mmol/L (21.0-32.0); POTASSIUM - SERUM 4.8 mmol/L (3.5-5.1)
[2020-06-04 09:35] LABS: % SATURATION 14 % (15-55); IRON 17 ug/dl (35-150); TOTAL IRON BIND CAPACITY 120 ug/dl (260-445); UNSAT IRON BIND CAPACITY 103 ug/dl (150-375)
[2020-06-05 08:43] LABS: ANION GAP 20.6 mmol/L (8-16); CALCIUM 9.9 mg/dL (8.5-10.1); CARBON DIOXIDE 22.1 mmol/L (21.0-32.0); CREATININE - SERUM 4.3 mg/dL (0.6-1.3); POTASSIUM - SERUM 4.7 mmol/L (3.5-5.1)
[2020-06-05] MEDS ORDERED: FLOMAX0.4 MG PO (17:37)
== END 2020-06-05 18:12 | disposition short-term general hospital (02) | DRG 92 ==
LOC: D.REHAB 18:45
PROVIDERS: Internal Medicine; Internal Medicine Hematology & Oncology; Internal Medicine Nephrology; ADMIT Emergency Medicine
DX: G72.89 Other specified myopathies (principal); C22.7 Other specified carcinomas of liver; N17.9 Acute kidney failure, unspecified; N39.0 Urinary tract infection, site not specified; I12.9 Hypertensive chronic kidney disease with stage 1 through stage 4 chronic kidney disease, or unspecified chronic kidney disease; E11.22 Type 2 diabetes mellitus with diabetic chronic kidney disease; N18.9 Chronic kidney disease, unspecified; R53.81 Other malaise; E11.40 Type 2 diabetes mellitus with diabetic neuropathy, unspecified; E78.5 Hyperlipidemia, unspecified; E87.5 Hyperkalemia; R26.2 Difficulty in walking, not elsewhere classified; R53.83 Other fatigue; G47.33 Obstructive sleep apnea (adult) (pediatric); R00.0 Tachycardia, unspecified; R53.1 Weakness; R06.02 Shortness of breath; M81.0 Age-related osteoporosis without current pathological fracture; M19.90 Unspecified osteoarthritis, unspecified site; E66.01 Morbid (severe) obesity due to excess calories; E03.9 Hypothyroidism, unspecified; E87.8 Other disorders of electrolyte and fluid balance, not elsewhere classified; Z68.36 Body mass index [BMI] 36.0-36.9, adult

== ENCOUNTER 2020-06-05 18:11 | Inpatient (IN) | payer MEDICARE, OTHER ==
[~2020-06-05] VITALS: Ht 167.6 cm; Wt 102.5 kg
--- NOTE | ~2020-06-05 | OP ---
PATIENT NAME: KOSTAS HERCULES MEDICAL RECORD: [id number] :37 LOCATION:D.MS [facility] ADMISSION DATE:06/05/20 SURGEON: CHANG UDRAN MD DATE OF OPERATION: 06/07/2020 PREOPERATIVE DIAGNOSES: 1. Malignant ascites. 2. Cirrhosis. 3. Hepatorenal syndrome. 4. Hepatocellular carcinoma. 5. Chronic renal insufficiency. POSTOPERATIVE DIAGNOSES: 1. Malignant ascites. 2. Cirrhosis. 3. Hepatorenal syndrome. 4. Hepatocellular carcinoma. 5. Chronic renal insufficiency. PROCEDURE: 1. Peritoneal PleurX catheter placement. 2. Fluoroscopic interpretation. SURGEON: Chang Duran MD DESCRIPTION OF PROCEDURE: The patient's right lateral abdomen was prepped and draped in sterile fashion. Using ultrasound guidance, I could see that there was a large volume of ascites present in the abdominal cavity. An Angiocath needle was used to cannulate the abdominal cavity and we encountered a thin serous fluid consistent with ascites. Through this Angiocath, a wire was advanced and fluoroscopy was used to note that the wire was progressing into the upper abdomen over the liver. The patient had 10 mL of 1% lidocaine with epinephrine infused around the needle site and on a pass out on the right lateral abdomen. We made 2 small skin incisions, one at the wire exit site and one on the right lateral abdomen and then tunneled the PleurX catheter between these 2 incisions. The dilators were placed over the wire under fluoroscopic guidance followed by the dilator trocar device. The dilator and wire were removed and the catheter was advanced through the trocar, which was then removed. We then hooked the catheter up to suction and removed 4100 mL of clear serous ascitic fluid. At this point, we stopped even though there was still some fluid present in the abdominal cavity. The catheter was sutured into place with a 3-0 nylon and the skin incision was closed with a subcutaneous 5-0 Monocryl. Dressings were then applied. COMPLICATIONS: None. CONDITION: Stable. ANESTHESIA: Local MAC. BLOOD LOSS: Minimal. TRANSINT:[id number] Voice Confirmation ID: [id number] DOCUMENT ID: [id number] OPERATIVE REPORT [id number] KOSTAS HERCULES CHANG DURAN MD CC: [id number] DICTATION DATE: 06/07/20 1250 BEE KEEPER: 06/07/20 1327 ADM IN [facility] [address] [place] [address]
[2020-06-05 21:31] VITALS: BMI 36.5
--- NOTE | 2020-06-05 22:08 | NUR ---
REPORT RECEIVED, WILL CONT POC. PT UP IN BED, ON THE PHONE WITH FAMILY. NO S/S OF DISTRESS OBSERVED. RR EVEN AND UNLABORED. ELIZALDE BAG CHANGED DUE TO LEAKING. BED LOCKED AND LOWERED, CL IN REACH.
[2020-06-06] VITALS: BP 116/59
[2020-06-06 04:00] VITALS: BP 123/57
[2020-06-06 06:55] LABS: APTT 36.1 SECONDS (22.8-39.4); INR 1.28 (0.85-1.17); PROTIME 14.8 SECONDS (11.6-15.0)
[2020-06-06 07:05] LABS: BASOPHILS 0.2 % (0-2); EOSINOPHILS 1.3 % (0-7); HEMATOCRIT 27.9 % (42.0-54.0); HEMOGLOBIN 9.2 g/dL (13.5-17.5); IMMATURE GRANULOCYTES 0.2 % (0-5); LYMPHOCYTE ABS# 0.61 10x3/uL (1.32-3.57); LYMPHOCYTES 11.3 % (15-50); MCH 26.4 pg (26.0-34.0); MCV 79.9 fL (80.0-100.0); MEAN PLATELET VOLUME 11.2 fL (7.4-10.4); MONOCYTES 8.7 % (2-11); NEUTROPHIL ABS# 4.23 10x3/uL (1.78-5.38); NEUTROPHILS 78.3 % (40-80); PLATELET COUNT 130 10x3/uL (130-400); RBC 3.49 10x6/uL (4.20-6.10); RDW 15.8 % (11.5-14.5); WBC 5.4 10x3/uL (4.8-10.8)
[2020-06-06 07:13] LABS: ALBUMIN 4.9 g/dL (3.4-5.0); ANION GAP 20.6 mmol/L (8-16); BILIRUBIN - TOTAL 1.63 mg/dL (0.2-1.3); CALCIUM 9.8 mg/dL (8.5-10.1); CARBON DIOXIDE 20.3 mmol/L (21.0-32.0); CREATININE - SERUM 4.3 mg/dL (0.6-1.3); MAGNESIUM - SERUM 2.1 mg/dL (1.8-2.4); POTASSIUM - SERUM 4.9 mmol/L (3.5-5.1); PROTEIN - SERUM 7.2 g/dL (6.4-8.2)
--- NOTE | 2020-06-06 07:58 | NUR ---
RESTING IN BED, NO DISTRESS NOTED, BUN ELEVATED, CONT TO MONITOR SUGARS,
[2020-06-06 09:08] VITALS: BP 135/60
--- NOTE | 2020-06-06 10:32 | NUR ---
WILL BE NPO AFTER MN AND HAVE PROCEDURE TOMORROW
[2020-06-06 14:48] VITALS: BP 118/60
[2020-06-06 14:50] VITALS: Ht 167.6 cm; Wt 102.5 kg
[2020-06-06 17:47] VITALS: BP 118/57
--- NOTE | 2020-06-06 19:45 | NUR ---
RECEIVED BEDSIDE REPORT. PT LAYING IN BED A&O X4. PIV TO RIGHT FOREARM PATENT AND S/L, NO REDNESS OR SWELLING. ABD DISTENDED. ELIZALDE IN PLACE, DRAINING TO GRAVITY. PT ABLE TO AMBULATE WITH ASSIST. EDUCATED PT ON CL AND NEEDS, VERBALIZED UNDERSTANDING. BED LOW, ALARM ON, CL IN REACH.
[2020-06-06 20:00] VITALS: BP 119/62
[2020-06-07] VITALS (11 sets, daily range): BP systolic 107–130; BP diastolic 53–62
[2020-06-07 06:08] LABS: BASOPHILS 0.4 % (0-2); EOSINOPHILS 2.3 % (0-7); HEMATOCRIT 29.5 % (42.0-54.0); HEMOGLOBIN 9.8 g/dL (13.5-17.5); IMMATURE GRANULOCYTES 0.2 % (0-5); LYMPHOCYTE ABS# 0.75 10x3/uL (1.32-3.57); LYMPHOCYTES 15.8 % (15-50); MCH 26.7 pg (26.0-34.0); MCHC 33.2 g/dL (31.0-37.0); MCV 80.4 fL (80.0-100.0); MEAN PLATELET VOLUME 10.6 fL (7.4-10.4); MONOCYTES 11.6 % (2-11); NEUTROPHILS 69.7 % (40-80); PLATELET COUNT 136 10x3/uL (130-400); RBC 3.67 10x6/uL (4.20-6.10); RDW 15.8 % (11.5-14.5); WBC 4.7 10x3/uL (4.8-10.8)
--- NOTE | 2020-06-07 06:28 | NUR ---
SHAREPOINT ANALYST ASSISTED WITH CHG BATH, EKG PERFORMED. PT TOLERATED WELL. BED LOW, ALARM ON, CL IN REACH.
[2020-06-07 06:34] LABS: ALBUMIN 4.6 g/dL (3.4-5.0); ANION GAP 21.3 mmol/L (8-16); BILIRUBIN - TOTAL 1.66 mg/dL (0.2-1.3); CALCIUM 10.1 mg/dL (8.5-10.1); CARBON DIOXIDE 20.1 mmol/L (21.0-32.0); CREATININE - SERUM 4.1 mg/dL (0.6-1.3); MAGNESIUM - SERUM 2.3 mg/dL (1.8-2.4); POTASSIUM - SERUM 4.4 mmol/L (3.5-5.1); PROTEIN - SERUM 7.5 g/dL (6.4-8.2)
--- NOTE | 2020-06-07 07:46 | NUR ---
RECIEVED BEDSIDE REPORT. IN BED RESTING. AROUSES TO VOICE. DENIES NEEDS AT THIS TIME. WILL CONTINUE TO MONITOR.
--- NOTE | 2020-06-07 11:20 | NUR ---
LEFT UNIT VIA BED TO PROCEDURE.
[2020-06-08 00:48] VITALS: BP 118/62
[2020-06-08 04:00] VITALS: BP 102/60
[2020-06-08 07:22] LABS: BASOPHILS 0.3 % (0-2); EOSINOPHILS 2.1 % (0-7); HEMATOCRIT 31.9 % (42.0-54.0); HEMOGLOBIN 10.5 g/dL (13.5-17.5); IMMATURE GRANULOCYTES 0.1 % (0-5); LYMPHOCYTE ABS# 1.15 10x3/uL (1.32-3.57); LYMPHOCYTES 16.2 % (15-50); MCH 26.4 pg (26.0-34.0); MCHC 32.9 g/dL (31.0-37.0); MCV 80.4 fL (80.0-100.0); MEAN PLATELET VOLUME 10.2 fL (7.4-10.4); MONOCYTES 9.4 % (2-11); NEUTROPHIL ABS# 5.12 10x3/uL (1.78-5.38); NEUTROPHILS 71.9 % (40-80); PLATELET COUNT 145 10x3/uL (130-400); RBC 3.97 10x6/uL (4.20-6.10); RDW 15.9 % (11.5-14.5)
[2020-06-08 07:33] LABS: WBC 7.1 10x3/uL (4.8-10.8)
[2020-06-08 07:59] LABS: ALBUMIN 4.3 g/dL (3.4-5.0); ANION GAP 20.4 mmol/L (8-16); BILIRUBIN - TOTAL 1.28 mg/dL (0.2-1.3); CARBON DIOXIDE 20.8 mmol/L (21.0-32.0); CREATININE - SERUM 3.9 mg/dL (0.6-1.3); MAGNESIUM - SERUM 2.5 mg/dL (1.8-2.4); POTASSIUM - SERUM 4.2 mmol/L (3.5-5.1); PROTEIN - SERUM 7.4 g/dL (6.4-8.2)
--- NOTE | 2020-06-08 08:15 | NUR ---
NOTIFIED MECHANICAL SERVICE TECHNICIAN OF CRITICAL BUN OF 132. NO NEW ORDER NOTED AT THIS TIME.
[2020-06-08 08:44] VITALS: BP 122/70
[2020-06-08 13:54] VITALS: BP 101/60
--- NOTE | 2020-06-10 17:21 | MORECARE ---
CASE MANAGEMENT DISCHARGE SUMMARY PATIENT: KOSTAS HERCULES UNIT: [id number] ADM DATE: 06/05/20 AGE: 85 : 36 SEX: M [facility] AUTHOR: KATIE DE LEON PHYSICIAN: REFERRING PHYSICIAN: KOSTAS OLSON MD DATE OF SERVICE: 06/10/20 Case Management Discharge Planning Summary DCP REVIEW SUMMARY ANTICIPATED D/C DATE: EXPECTED LOS : CASE STATUS: DCP Initiated INITIAL REVIEW: 06/05/2020 INITIAL REVIEWER: Kathleen Huber FINAL DISCHARGE DISPOSITION: : FINAL REVIEWER: FINAL REVIEW DATE: DCP Focus Questions & Answers QUESTION: ANSWER : PROVIDER NETWORKING REVIEW DATE: 06/07/2020 SERVICE TYPE: Hospice REVIEWER: Audrey Sanchez PATIENT: KOSTAS HERCULES ENCOUNTER: [id number] MEDICAL RECORD#: [id number] ADMISSION DATE: 06/05/2020 DISCHARGE DATE: 06/08/2020 ATTENDING MD: EFRAIN ALMEIDA : AGE: 85 MARITAL STATUS: M DC PLAN ID: [id number] FACILITY: [facility] PRINTED ON: 06/10/20 17:21 CT All edits/amendments must be made on the electronic document DICTATION DATE: 06/10/201720 CHURCH BUSINESS ADMINISTRATOR: MICHELLE 06/10/201720 RPT#: [id number] DC DATE:06/08/20 STATUS: DIS IN [facility] [address] [place] [address] END OF REPORT
--- NOTE | 2020-06-11 09:09 | MORECARE ---
CASE MANAGEMENT DISCHARGE SUMMARY PATIENT: KOSTAS HERCULES UNIT: [id number] ADM DATE: 06/05/20 AGE: 85 : 36 SEX: M [facility] AUTHOR: MOISES,DOC PHYSICIAN: REFERRING PHYSICIAN: KOSTAS OLSON MD DATE OF SERVICE: 06/11/20 Case Management Discharge Planning Summary DCP REVIEW SUMMARY ANTICIPATED D/C DATE: EXPECTED LOS : CASE STATUS: DCP Initiated INITIAL REVIEW: 06/05/2020 INITIAL REVIEWER: Kathleen Huber FINAL DISCHARGE DISPOSITION: : FINAL REVIEWER: FINAL REVIEW DATE: DCP Focus Questions & Answers QUESTION: ANSWER : PROVIDER NETWORKING REVIEW DATE: 06/07/2020 SERVICE TYPE: Hospice REVIEWER: Audrey Sanchez PATIENT: KOSTAS HERCULES ENCOUNTER: [id number] MEDICAL RECORD#: [id number] ADMISSION DATE: 06/05/2020 DISCHARGE DATE: 06/08/2020 ATTENDING MD: EFRAIN ALMEIDA : AGE: 85 MARITAL STATUS: M DC PLAN ID: [id number] FACILITY: [facility] PRINTED ON: 06/11/20 9:09 CT All edits/amendments must be made on the electronic document DICTATION DATE: 06/11/20908 SPAR MACHINE OPERATOR: MICHELLE 06/11/20908 RPT#: [id number] DC DATE:06/08/20 STATUS: DIS IN [facility] [address] [place] [address] END OF REPORT
== END 2020-06-08 13:10 | disposition home health service (06) | DRG 435 ==
LOC: D.MS 18:11
PROVIDERS: Emergency Medicine; Surgery; ADMIT Emergency Medicine; ATTEND Emergency Medicine
PROC: 0WHG33Z Insertion of Infusion Device into Peritoneal Cavity, Percutaneous Approach (ICD-10-PCS; principal; 2020-06-07 11:45)
DX: C22.0 Liver cell carcinoma (principal); K76.7 Hepatorenal syndrome; R18.0 Malignant ascites; N17.9 Acute kidney failure, unspecified; E11.22 Type 2 diabetes mellitus with diabetic chronic kidney disease; I12.9 Hypertensive chronic kidney disease with stage 1 through stage 4 chronic kidney disease, or unspecified chronic kidney disease; N18.9 Chronic kidney disease, unspecified; E66.01 Morbid (severe) obesity due to excess calories; Z68.36 Body mass index [BMI] 36.0-36.9, adult; G47.33 Obstructive sleep apnea (adult) (pediatric); M81.0 Age-related osteoporosis without current pathological fracture; E03.9 Hypothyroidism, unspecified; E29.1 Testicular hypofunction; G51.0 Bell's palsy; Z86.16 Personal history of COVID-19; Z86.73 Personal history of transient ischemic attack (TIA), and cerebral infarction without residual deficits; R53.81 Other malaise; D72.10 Eosinophilia, unspecified; Z99.81 Dependence on supplemental oxygen; K74.60 Unspecified cirrhosis of liver